=== PATIENT | male | born 1955 | race American Indian/Alaskan Native ===

== ENCOUNTER 2016-11-30 10:01 | Outpatient (CLI) | payer OTHER ==
--- NOTE | 2016-11-30 11:03 | XRay Report ---
LEFT SHOULDER, 3 views: History: Left shoulder pain. A healing nondisplaced fracture is identified in the medial third of left clavicle. Calcified callus bridges the fracture site although fracture lines are still evident. The remaining bony structures are intact. No joint pathology is appreciated. Normal soft tissues. IMPRESSION: Healing, nondisplaced left clavicle fracture.
== END 2016-11-30 10:02 | disposition home or self-care (01) ==
LOC: XRAY 10:01
PROVIDERS: ATTEND Internal Medicine
DX: M25.512 Pain in left shoulder (principal); S42.018D Nondisplaced fracture of sternal end of left clavicle, subsequent encounter for fracture with routine healing; X58.XXXD Exposure to other specified factors, subsequent encounter